=== PATIENT | female | born 1990 | race Caucasian/White ===

== ENCOUNTER 2020-03-31 12:16 | Observation (INO) | payer MEDICAID ==
[~2020-03-31] VITALS: Ht 162.6 cm; Wt 63.5 kg
[2020-03-31] MEDS ORDERED: PREN1TAB78 PO (12:46)
[2020-04-13] MEDS ORDERED: IBUP-2030 PO (08:04)
== END 2020-03-31 15:30 | disposition home or self-care (01) ==
LOC: EDBD → 8 EST LDRP 12:16 → OBSVTOIN 12:16 → INTOOBSV 12:16 → UNDOADMOB 12:16 → OB TRIAGE 12:16 → 8 EST LDRP 04-01 06:21
PROVIDERS: ADMIT Obstetrics & Gynecology; ATTEND Obstetrics & Gynecology
DX: O62.9 Abnormality of forces of labor, unspecified (principal); Z20.822 Contact with and (suspected) exposure to COVID-19; Z3A.38 38 weeks gestation of pregnancy
CPT/HCPCS: 59025; 76805; G0378; U0003; 99281

== ENCOUNTER 2022-03-27 20:23 | Observation (INO) | payer MEDICAID ==
[~2022-03-27] VITALS: Ht 162.6 cm; Wt 68.0 kg
[~2022-03-27 20:23] MED LIST: IBUP-2030 PO
[2022-03-27] MEDS ORDERED: FERR325T6 MT (21:06)
[2022-03-27] MEDS ORDERED: PNV1TABL50 MT (21:06)
== END 2022-03-28 00:40 | disposition home or self-care (01) ==
LOC: 8 EST LDRP 20:23
PROVIDERS: ADMIT Obstetrics & Gynecology; ATTEND Obstetrics & Gynecology
DX: O26.893 Other specified pregnancy related conditions, third trimester (principal); R10.9 Unspecified abdominal pain; O42.913 Preterm premature rupture of membranes, unspecified as to length of time between rupture and onset of labor, third trimester; O99.891 Other specified diseases and conditions complicating pregnancy; M54.9 Dorsalgia, unspecified; Z3A.33 33 weeks gestation of pregnancy; V89.2XXA Person injured in unspecified motor-vehicle accident, traffic, initial encounter; Y93.89 Activity, other specified; Y92.89 Other specified places as the place of occurrence of the external cause
CPT/HCPCS: 59025; 76805; 76818; G0378; 99281

== ENCOUNTER 2022-04-07 15:09 | Observation (INO) | payer MEDICAID ==
[~2022-04-07] VITALS: Ht 165.1 cm; Wt 74.8 kg
[~2022-04-07 15:09] MED LIST changes: +FERR325T6 MT; +PNV1TABL50 MT
[2022-04-07 15:47] LABS: CLARITY URINE CLOUDY (CLEAR); COLOR URINE YELLOW (YELLOW); KETONES URINE TRACE (NEGATIVE); LEUKOCYTE ESTERASE URINE 1+ (NEGATIVE); NITRITE URINE NEGATIVE (NEGATIVE); OCCULT BLOOD URINE NEGATIVE (NEGATIVE); PROTEIN URINE TRACE (NEGATIVE); SPECIFIC GRAVITY URINE 1.025 (1.005-1.030)
[2022-04-07] MEDS ORDERED: LACTATED RINGERS 1,000 ML IV SCH (16:00)
[2022-04-07] MEDS ORDERED: CEFAZOLIN 2,000 MG in DEXT 5% WATER 100 ML IV NR (18:00)
== END 2022-04-07 18:05 | disposition home or self-care (01) ==
LOC: 8 EST LDRP 15:09
PROVIDERS: ADMIT Obstetrics & Gynecology; ATTEND Obstetrics & Gynecology
DX: O26.893 Other specified pregnancy related conditions, third trimester (principal); R10.9 Unspecified abdominal pain; H53.8 Other visual disturbances; O62.9 Abnormality of forces of labor, unspecified; O36.8130 Decreased fetal movements, third trimester, not applicable or unspecified; Z3A.35 35 weeks gestation of pregnancy
CPT/HCPCS: 59025; 76815; 76818; 81003; 87086; 96361; 96365; G0378; J0690; J7060; 96360; 99281; G0379

== ENCOUNTER 2022-05-03 06:39 | Inpatient (IN) | payer MEDICAID ==
[~2022-05-03] VITALS: Ht 162.6 cm; Wt 72.6 kg
[2022-05-03] MEDS ORDERED: LIDOCAINE HCL 1% 20ML VIAL (Pyxis) INJ INFIL PRN (09:00)
[2022-05-03] MEDS ORDERED: BUTORPHANOL TARTRATE 2 MG/ML VIAL IV PRN (09:00)
[2022-05-03] MEDS ORDERED: CARBOPROST TROMETHAMINE 250 MCG/ML AMPUL IM PRN (09:00)
[2022-05-03] MEDS ORDERED: METHYLERGONOVINE MALEATE 0.2 MG/ML IM PRN ×2 (09:00→18:15)
[2022-05-03] MEDS ORDERED: MISOPROSTOL 100MCG TABLET VG PRN (09:00)
[2022-05-03] MEDS: LACTATED RINGERS 1,000 ML IV SCH ×2 (09:48→15:34)
[2022-05-03 10:22] LABS: CLARITY URINE CLOUDY (CLEAR); COLOR URINE YELLOW (YELLOW); KETONES URINE NEGATIVE (NEGATIVE); LEUKOCYTE ESTERASE URINE 2+ (NEGATIVE); NITRITE URINE NEGATIVE (NEGATIVE); OCCULT BLOOD URINE NEGATIVE (NEGATIVE); PROTEIN URINE NEGATIVE (NEGATIVE); SPECIFIC GRAVITY URINE 1.007 (1.005-1.030); UROBILINOGEN URINE 0.2 E.U./dL (0.2-1.0)
[2022-05-03 10:22] LABS: BASOPHILS % 0.4 % (0.0-2.0); EOSINOPHILS % 1.7 % (0.0-5.0); HEMATOCRIT. 30.7 % (36.0-48.0); HEMOGLOBIN. 10.4 g/dL (12.0-16.0); LYMPHOCYTES % 20.9 % (20.0-50.0); MEAN CORPUSCULAR HEMOGLOBIN 30.5 pg (28.0-32.0); MEAN CORPUSCULAR VOLUME 90.5 fL (81.0-99.0); MEAN PLATELET VOLUME 7.7 fl (7.4-10.4); PLATELET 258 x1000/uL (130-400); RED BLOOD CELL COUNT 3.39 mill/uL (4.2-5.4); RED CELL DISTRIBUTION WIDTH 15.7 % (11.6-14.6)
[2022-05-03 10:32] LABS: PROTHROMBIN TIME 10.3 sec (9.6-11.0)
[2022-05-03 10:46] LABS: *AMPHETAMINES SCREEN URINE NEGATIVE (NEGATIVE); *BARBITURATES SCREEN URINE NEGATIVE (NEGATIVE); *BENZODIAZEPINES SCREEN URINE NEGATIVE (NEGATIVE); *COCAINE SCREEN URINE NEGATIVE (NEGATIVE); CANNABINOID URINE SCREEN NEGATIVE (NEGATIVE); METHADONE URINE SCREEN NEGATIVE (NEGATIVE); OPIATES URINE SCREEN NEGATIVE (NEGATIVE); PHENCYCLIDINE URINE SCREEN NEGATIVE (NEGATIVE)
[2022-05-03] MEDS ORDERED: PENICILLIN G POTASSIUM 5 MMU in DEXT 5% WATER 100 ML IV SCH (11:00)
[2022-05-03] MEDS ORDERED: MISOPROSTOL 100MCG TABLET VG SCH (11:00)
[2022-05-03] MEDS ORDERED: NALOXONE HCL 0.4 MG/ML 1ML VIAL IM PRN (15:00)
[2022-05-03] MEDS ORDERED: PENICILLIN G POTASSIUM 2.5 MMU in DEXTROSE 5% WATER 50 ML IV SCH (15:00)
[2022-05-03 15:02] LABS: HEPATITIS B SURFACE ANTIGEN NEGATIVE
[2022-05-03] MEDS: OXYTOCIN 30 UNITS/500ML NS PMX 500 ML IV SCH ×2 (15:05→18:18)
[2022-05-03] MEDS ORDERED: ROPIVACAINE HCL/PF EPIDURAL 0 ML EPI ONE (17:09)
[2022-05-03] MEDS ORDERED: IBUPROFEN 400MG TABLET PO PRN (18:15)
[2022-05-03] MEDS ORDERED: OXYTOCIN 30 UNITS/500ML NS PMX 500 ML IV SCH (18:15)
[2022-05-03] MEDS ORDERED: RHO(D) IMMUNE GLOBULIN 300 MCG/SYR IM PRN (18:15)
[2022-05-03 21:30] VITALS: BP 110/72
[2022-05-03] MEDS: IBUPROFEN 800MG TABLET PO PRN (21:34)
[2022-05-04] MEDS ORDERED: MEASLES,MUMPS&RUBELLA VACCINE 1 VIAL SUBCUT ONE (02:30)
[2022-05-04 04:00] VITALS: BP 99/43
[2022-05-04] MEDS: IBUPROFEN 800MG TABLET PO PRN ×2 (04:19→20:10)
[2022-05-04 06:27] LABS: BASOPHILS % 0.3 % (0.0-2.0); EOSINOPHILS % 1.3 % (0.0-5.0); HEMATOCRIT. 29.6 % (36.0-48.0); HEMOGLOBIN. 10.1 g/dL (12.0-16.0); LYMPHOCYTES % 22.2 % (20.0-50.0); MEAN CORPUSCULAR HEMOGLOBIN 30.8 pg (28.0-32.0); MEAN CORPUSCULAR VOLUME 90.2 fL (81.0-99.0); MEAN PLATELET VOLUME 7.6 fl (7.4-10.4); MONOCYTES % 6.8 % (2.0-8.0); NEUTROPHILS % 69.4 % (40.0-76.0); PLATELET 215 x1000/uL (130-400); RED BLOOD CELL COUNT 3.28 mill/uL (4.2-5.4); RED CELL DISTRIBUTION WIDTH 15.6 % (11.6-14.6)
[2022-05-04 08:00] VITALS: BP 102/45
[2022-05-04 16:00] VITALS: BP 97/45
[2022-05-04] MEDS: PRENATAL VIT/FE FUMARATE/FA TABLET PO SCH (18:04)
[2022-05-04] MEDS: LANOLIN OINT 7GM TUBE TOP PRN (18:04)
[2022-05-04 19:30] VITALS: BP 103/44
[2022-05-05 03:45] VITALS: BP 98/46
[2022-05-05 08:00] VITALS: BP 96/42
[2022-05-05 08:08] LABS: HIV SCREEN 4G Non Reactive (Non Reactive)
[2022-05-05] MEDS: PRENATAL VIT/FE FUMARATE/FA TABLET PO SCH (08:33)
[2022-05-05] MEDS: LANOLIN OINT 7GM TUBE TOP PRN (08:33)
[2022-05-05] MEDS ORDERED: MEDROXYPROGESTERONE ACETATE 150MG/ML VIAL IM NR (09:00)
== END 2022-05-05 11:00 | disposition home or self-care (01) | DRG 560 ==
LOC: 8 EST LDRP 06:39 → OBSVTOIN 10:00 → 8EST 23:32
PROVIDERS: ADMIT Obstetrics & Gynecology; ATTEND Obstetrics & Gynecology
PROC: 10E0XZZ Delivery of Products of Conception, External Approach (ICD-10-PCS; principal; 2022-05-03)
PROC: 3E0S3BZ Introduction of Anesthetic Agent into Epidural Space, Percutaneous Approach (ICD-10-PCS; 2022-05-03)
PROC: 00HU33Z Insertion of Infusion Device into Spinal Canal, Percutaneous Approach (ICD-10-PCS; 2022-05-03)
DX: O41.03X0 Oligohydramnios, third trimester, not applicable or unspecified (principal); Z37.0 Single live birth; D62 Acute posthemorrhagic anemia; O36.8130 Decreased fetal movements, third trimester, not applicable or unspecified; O99.02 Anemia complicating childbirth; Z3A.38 38 weeks gestation of pregnancy; Z90.49 Acquired absence of other specified parts of digestive tract; Z20.822 Contact with and (suspected) exposure to COVID-19
CPT/HCPCS: 36415; 76805; 76818; 80305; 81003; 85025; 86592; 86762; 86850; 86900; 87340; 87389; 87426; 90707; 99281; G0378; J0595; J1050; J2540; J2795; J7060; J7120; J2590